=== PATIENT | male | born 2000 | race Caucasian/White ===

== ENCOUNTER 2022-12-16 12:18 | Emergency (ER) | payer OTHER ==
[~2022-12-16] VITALS: Ht 190.5 cm; Wt 72.5 kg
[2022-12-16] MEDS ORDERED: LACTATED RINGERS 1,000 ML IV STA (12:34)
[2022-12-16] MEDS ORDERED: LORazepam INJ 2 MG/ML (ATIVAN) VIAL ONE (12:36)
[2022-12-16] MEDS ORDERED: LACTATED RINGERS 1,000 ML IV ONE (12:36)
[2022-12-16 12:44] LABS: BASOPHILS % (AUTO) 1 % (0-10); EOSINOPHILS % (AUTO) 0 % (0-10); HEMATOCRIT 47 % (40-54); HEMOGLOBIN 17.6 g/dL (13.3-17.7); LYMPHOCYTES # (AUTO) 1.1 10^3/uL (1.0-4.0); LYMPHOCYTES % (AUTO) 19 % (12-44); MEAN CORPUSCULAR HEMOGLOBIN 33 pg (25-34); MEAN CORPUSCULAR HGB CONC 37 g/dL (32-36); MEAN CORPUSCULAR VOLUME 89 fL (80-99); MEAN PLATELET VOLUME 9.9 fL (9.0-12.2); MONOCYTES # (AUTO) 0.3 10^3/uL (0.0-1.0); MONOCYTES % (AUTO) 5 % (0-12); NEUTROPHILS # (AUTO) 4.4 10^3/uL (1.8-7.8); NEUTROPHILS % (AUTO) 75 % (42-75); PLATELET COUNT 325 10^3/uL (130-400); WHITE BLOOD COUNT 5.9 10^3/uL (4.3-11.0)
[2022-12-16] MEDS ORDERED: LORazepam INJ 2 MG/ML (ATIVAN) VIAL IVP ONE (12:45)
--- NOTE | 2022-12-16 12:45 | ED Chest Pain ---
General Stated Complaint: CP, HEAD PAIN, VOMITTING, ASTHMATIC Source: patient Exam Limitations: no limitations History of Present Illness Date Seen by Provider: Dec 16, 2022 Time Seen by Provider: 12:41 Initial Comments Patient is a 22-year-old male with a history of asthma, anxiety, depression who presents to the ED for chest pain, headache, shortness of breath, shaking. Patient is currently in the and lives in [place]. 1 hour ago patient was not running a PT test. According to bystanders patient was finishing the drag sprint and carry. Patient started to complain of shortness of breath that resulted in chest pain and head pain. Patient walked to the side and supposedly "passed out". They elevated his feet and patient became more awake and alert. according to the bystanders at bedside state patient was hard to arouse. Did start to become more alert fairly quick afterwards. Patient ate some rice crispy treat. Did vomit 3-4 times. Started having shakiness. Took 3 breaths of his albuterol inhaler without much improvement. On arrival patient is shaking. Patient mouth appears dry. States he did drink some fluid yesterday but not as enough. Denies performing this new PT test in the past. Denies a history of heart disease, COPD. History of asthma and denies using his albuterol on a regular basis. Reports generalized hip pain, blurry vision and cramping. Allergies and Home Medications Allergies Coded Allergies: No Known Drug Allergies (Unverified , 12/16/22) Patient Home Medication List Home Medication List Reviewed: Yes Review of Systems Review of Systems Constitutional: No chills, No diaphoresis, No malaise, No weakness EENTM: No Eye Pain, No Ear Pain, No Mouth Pain, No Mouth Swelling Respiratory: Denies Cough, Denies Orthopnea Cardiovascular: Chest Pain Gastrointestinal: Denies Abdominal Pain; Nausea, Vomiting Genitourinary: Denies Burning, Denies Discharge, Denies Drainage, Denies Frequency Musculoskeletal: No back pain, No joint pain Skin: No change in color, No change in hair/nails All Other Systems Reviewed Negative Unless Noted: Yes Physical Exam Vital Signs Vital Signs - First Documented 12/16/22 12:24 Pulse 119 Resp 30 B/P (MAP) 140/78 (98) Pulse Ox 100 O2 Delivery Room Air Capillary Refill : Height, Weight, BMI Height: '" Weight: lbs. oz. kg; BMI Method: General Appearance: No Apparent Distress, WD/WN, Other (sweating) HEENT: PERRL/EOMI, TMs Normal, Normal ENT Inspection, Other (dry mouth) Neck: Full Range of Motion, Normal Inspection, Non Tender, Supple Respiratory: Chest Non Tender, Lungs Clear, Normal Breath Sounds, No Accessory Muscle Use, No Respiratory Distress Cardiovascular: Regular Rate, Rhythm, No Edema, No Gallop, No JVD, No Murmur Gastrointestinal: Normal Bowel Sounds, No Organomegaly, No Pulsatile Mass, Non Tender Extremity: Normal Capillary Refill, Normal Inspection, Normal Range of Motion, Non Tender Neurologic/Psychiatric: Alert, Oriented x3, No Motor/Sensory Deficits, Normal Mood/Affect Skin: Normal Color, Warm/Dry Progress/Results/Core Measures Results/Orders Lab Results Laboratory Tests Test 12/16/22 12:35 Range/Units White Blood Count 5.9 4.3-11.0 10^3/uL Red Blood Count 5.31 4.30-5.52 10^6/uL Hemoglobin 17.6 13.3-17.7 g/dL Hematocrit 47 40-54 % Mean Corpuscular Volume 89 80-99 fL Mean Corpuscular Hemoglobin 33 25-34 pg Mean Corpuscular Hemoglobin Concent 37 H 32-36 g/dL Red Cell Distribution Width 11.9 10.0-14.5 % Platelet Count 325 130-400 10^3/uL Mean Platelet Volume 9.9 9.0-12.2 fL Immature Granulocyte % (Auto) 0 % Neutrophils (%) (Auto) 75 42-75 % Lymphocytes (%) (Auto) 19 12-44 % Monocytes (%) (Auto) 5 0-12 % Eosinophils (%) (Auto) 0 0-10 % Basophils (%) (Auto) 1 0-10 % Neutrophils # (Auto) 4.4 1.8-7.8 10^3/uL Lymphocytes # (Auto) 1.1 1.0-4.0 10^3/uL Monocytes # (Auto) 0.3 0.0-1.0 10^3/uL Eosinophils # (Auto) 0.0 0.0-0.3 10^3/uL Basophils # (Auto) 0.0 0.0-0.1 10^3/uL Immature Granulocyte # (Auto) 0.0 0.0-0.1 10^3/uL Sodium Level 141 135-145 MMOL/L Potassium Level 4.1 3.6-5.0 MMOL/L Chloride Level 109 H 98-107 MMOL/L Carbon Dioxide Level 14 L 21-32 MMOL/L Anion Gap 18 H 5-14 MMOL/L Blood Urea Nitrogen 17 7-18 MG/DL Creatinine 1.08 0.60-1.30 MG/DL Estimat Glomerular Filtration Rate 100 BUN/Creatinine Ratio 16 Glucose Level 113 H 70-105 MG/DL Calcium Level 10.1 8.5-10.1 MG/DL Corrected Calcium 8.5-10.1 MG/DL Magnesium Level 3.1 H 1.6-2.4 MG/DL Total Bilirubin 0.8 0.1-1.0 MG/DL Aspartate Amino Transf (AST/SGOT) 26 5-34 U/L Alanine Aminotransferase (ALT/SGPT) 15 0-55 U/L Alkaline Phosphatase 53 40-136 U/L Total Creatine Kinase 182 30-200 U/L Troponin I < 0.028 <0.028 NG/ML Total Protein 7.5 6.4-8.2 GM/DL Albumin 5.0 H 3.2-4.5 GM/DL Lipase 29 8-78 U/L My Orders Orders - REDDY EASTON PA Cbc With Automated Diff (12/16/22 12:34) Comprehensive Metabolic Panel (12/16/22 12:34) Lipase (12/16/22 12:34) Troponin I Rowdy (12/16/22 12:34) Ekg Tracing (12/16/22 12:34) Creatine Kinase (12/16/22 12:34) Magnesium (12/16/22 12:34) Chest 1 View, Ap/Pa Only (12/16/22 12:34) Lactated Ringers (Lr 1000 Ml Iv Solution (12/16/22 12:34) Lorazepam Injection (Ativan Injection) (12/16/22 12:45) Lactated Ringers (Lr 1000 Ml Iv Solution (12/16/22 12:36) Lorazepam Injection (Ativan Injection) (12/16/22 12:36) Medications Given in ED Current Medications Medications Dose Ordered Sig/Carli Route Start Time Stop Time Status Last Admin Dose Admin Lorazepam 1 mg ONCE ONCE IVP 3/4/23 12:45 12/16/22 12:46 DC 12/16/22 12:40 1 MG Vital Signs/I&O 12/16/22 12:24 Pulse 119 Resp 30 B/P (MAP) 140/78 (98) Pulse Ox 100 O2 Delivery Room Air Comment Sinus rhythm, 95 bpm, QRS duration 93 MS, QTc 463 MS. Departure Communication (PCP) No available outpatient H&P's, testing, imaging. no history of heart disease. Denies history of having syncope with exertion. History of exercise-induced asthma, anxiety, depression currently on medication for. Patient was performing a PT test when he became weak during the exercise with a possible syncopal episode, acute chest pain and head pain. Patient lives in [place] and currently in the area for drill. Patient on arrival hyperventilating. Patient shaking and slow to respond to questions. Able to to respond to commands, pain. Alert and oriented x3. Concerning patient having a panic attack. Patient was given Ativan 1mg with improvement of his chest tightness, shakiness. EKG showed sinus rhythm. EKG was negative for A-fib, a flutter, WPW, Brugada syndrome. No evidence of murmur. Lung sounds clear bilateral. Due to current chest pain cardiac work-up was ordered. Normal troponin, chest x-ray unremarkable. No evidence of pneumonia, pneumothorax, mediastinal widening. Patient was not hypotensive. Patient Was started on a liter of fluid. CBC was unremarkable. Magnesium of 3.1. This should improve with IV fluids normal kidney function but was slightly dehydrated. CO2 of 14 likely secondary to hyperventilating. Patient was given a liter of fluid. Recommended a second liter for the hyper magnesium but patient refused. Normal CK. Patient does not appear to be in rhabdo. Differential diagnosis of anxiety attack, dehydration, overexertion, rhabdo, HOCM, exercise-induced asthma attack. No known history of heart disease. Due to his presentation and complaints recommend evaluation by his primary care physician before returning back to activities. May need further cardiac evaluation due to the chest pain. More likely overexertion during the PT test resulted in him hyperventilating. Recommend continue hydrat ion. Follow-up with PCP in 2 to 3 days for reevaluation with lab work. Patient states he felt fine prior to the exercise today. Return precaution were discussed such as worsening symptoms of chest pain, shortness of breath. Impression Primary Impression: Weakness Additional Impressions: Anxiousness Chest pain Disposition: 01 HOME, SELF-CARE Condition: Stable Departure-Patient Inst. Decision time for Depature: 13:19 Referrals: [facility] [place] Patient Instructions: Chest Pain (DC) Add. Discharge Instructions: I recommend no physical activity until seen by his primary care physician and cleared to return to duty. Further evaluation may be warranted for cardiac if continue having symptoms. REDDY EASTON Dec 16, 2022 12:45
[2022-12-16 12:54] LABS: CHLORIDE 109 MMOL/L (98-107); POTASSIUM 4.1 MMOL/L (3.6-5.0); SODIUM 141 MMOL/L (135-145)
[2022-12-16 12:55] LABS: CALCIUM 10.1 MG/DL (8.5-10.1)
[2022-12-16 12:56] LABS: GLUCOSE 113 MG/DL (70-105)
[2022-12-16 12:57] LABS: TOTAL PROTEIN 7.5 GM/DL (6.4-8.2)
[2022-12-16 12:58] LABS: CARBON DIOXIDE 14 MMOL/L (21-32)
[2022-12-16 12:59] LABS: BILIRUBIN,TOTAL 0.8 MG/DL (0.1-1.0)
[2022-12-16 13:00] LABS: ALKALINE PHOSPHATASE 53 U/L (40-136); CREATININE SERUM 1.08 MG/DL (0.60-1.30); GFR ESTIMATED 100
[2022-12-16 13:01] LABS: BUN/CREATININE RATIO 16
[2022-12-16 13:03] LABS: ALANINE AMINOTRANSFERASE 15 U/L (0-55); MAGNESIUM 3.1 MG/DL (1.6-2.4)
[2022-12-16 13:04] LABS: CREATINE KINASE 182 U/L (30-200); LIPASE 29 U/L (8-78)
--- NOTE | 2022-12-16 13:10 | Diagnostic Imaging Report ---
INDICATION: Chest pain, shortness fair. TECHNIQUE: Single view chest 1:04 PM. CORRELATION STUDY: None FINDINGS: The heart size, mediastinal configuration and pulmonary vascularity are within normal limits. The lungs are clear with no consolidating infiltrate. Minimal perihilar scarring or atelectasis. There is no significant effusion or pneumothorax. IMPRESSION: 1. Negative appearing single view chest. Dictated by: Dictated on workstation # [id number]
[2022-12-16 14:16] VITALS: BP 128/72
== END 2022-12-16 14:16 | disposition home or self-care (01) ==
LOC: ER 12:20
DX: R07.9 Chest pain, unspecified (principal); F41.9 Anxiety disorder, unspecified; J45.909 Unspecified asthma, uncomplicated; Z79.51 Long term (current) use of inhaled steroids
CPT/HCPCS: 36415; 71045; 80053; 82550; 83690; 83735; 84484; 85025; 93005